=== PATIENT | female | born 1930 | race Caucasian/White ===

== ENCOUNTER 2016-08-25 20:49 | Emergency (ER) | payer OTHER ==
[2016-08-25 21:43] VITALS: BP 137/89
== END 2016-08-25 21:43 | disposition home or self-care (01) ==
LOC: ED 20:49
DX: S81.812A Laceration without foreign body, left lower leg, initial encounter (principal); W20.8XXA Other cause of strike by thrown, projected or falling object, initial encounter; Y93.89 Activity, other specified; Y92.89 Other specified places as the place of occurrence of the external cause; Y99.8 Other external cause status; Z88.0 Allergy status to penicillin; Z88.2 Allergy status to sulfonamides; Z88.1 Allergy status to other antibiotic agents
CPT/HCPCS: 90715; Q0092

== ENCOUNTER 2017-03-06 23:09 | Emergency (ER) | payer OTHER ==
[~2017-03-06] VITALS: Ht 165.1 cm; Wt 75.7 kg
[2017-03-06 23:15] VITALS: Ht 165.1 cm; Wt 75.7 kg
[2017-03-07 02:55] VITALS: BP 123/67
== END 2017-03-07 02:55 | disposition home or self-care (01) ==
LOC: ED 23:09
DX: S29.011A Strain of muscle and tendon of front wall of thorax, initial encounter (principal); M19.012 Primary osteoarthritis, left shoulder; M75.32 Calcific tendinitis of left shoulder; I10 Essential (primary) hypertension; E78.00 Pure hypercholesterolemia, unspecified; E03.9 Hypothyroidism, unspecified; Z88.0 Allergy status to penicillin; Z88.1 Allergy status to other antibiotic agents; Z88.2 Allergy status to sulfonamides; X58.XXXA Exposure to other specified factors, initial encounter; Y93.89 Activity, other specified; Y92.89 Other specified places as the place of occurrence of the external cause; Y99.8 Other external cause status
CPT/HCPCS: J1100; J1885

== ENCOUNTER 2017-06-03 04:14 | Inpatient (IN) | payer OTHER ==
[~2017-06-03] VITALS: Ht 160 cm; Wt 73.5 kg
[2017-06-03 04:58] LABS: BASOPHIL % 0.3 % (0-2); PLATELET COUNT 243 x10^3mcL (130-400); RED CELL DISTRIBUTION WIDTH 13.6 % (11.5-14.5)
[2017-06-03 05:07] LABS: CALCIUM 9.6 mg/dL (8.5-10.1); CARBON DIOXIDE 31.2 mmol/L (21-32); CHLORIDE SERUM 97 mmol/L (98-107); CREATININE SERUM 0.8 mg/dL (0.6-1.0); GLUCOSE SERUM 115 mg/dL (74-106); POTASSIUM SERUM 3.7 mmol/L (3.5-5.1); SODIUM SERUM 134 mmol/L (136-145)
[2017-06-03 05:12] LABS: ALBUMIN 3.9 g/dL (3.4-5.0); ALKALINE PHOSPHATASE 65 U/L (46-116); ALT/SGPT 15 U/L (14-59); AST/SGOT 29 U/L (15-37); TOTAL PROTEIN, SERUM 7.5 g/dL (6.4-8.2)
[2017-06-03] MEDS ORDERED: BENAZEPRIL HYDR20 M1 PO (06:03)
[2017-06-03] MEDS ORDERED: PRAVACHOL20 MG PO (06:04)
[2017-06-03] MEDS ORDERED: LEVOTHYROXIN0.075 M2 PO (06:04)
[2017-06-03 06:45] VITALS: BP 155/69
[2017-06-03 07:00] LABS: T3 TOTAL 0.92 ng/mL
[2017-06-03 08:29] VITALS: BP 155/69
[2017-06-03 09:05] LABS: MAGNESIUM 1.7 mg/dL (1.8-2.4); PHOSPHOROUS 4.1 mg/dL (2.5-4.9)
[2017-06-03 09:06] LABS: CHOLESTEROL/HDL RATIO 2.5
[2017-06-03 09:11] LABS: FREE T4 1.19 ng/dL (0.76-1.46); FREE THYROXINE INDEX 3.1 ug/dL (1.4-4.5); T4(THYROXINE) 9.5 ug/dL (4.7-13.3)
[2017-06-03 09:30] VITALS: BP 129/56
[2017-06-03 10:17] LABS: UA SPECIFIC GRAVITY 1.025 (1.005-1.035); microscopic required? YES; urine erythrocyte NEGATIVE (NEGATIVE)
[2017-06-03 11:02] LABS: AMPHETAMINE QUAL UR NONE DETECTED (NEG <=1000)
[2017-06-03 12:30] VITALS: BP 149/62
[2017-06-03 16:40] VITALS: BP 139/61
[2017-06-03 22:02] VITALS: BP 128/60
[2017-06-04 05:44] VITALS: BP 155/66
[2017-06-04 06:33] LABS: BASOPHIL % 0.3 % (0-2); PLATELET COUNT 222 x10^3mcL (130-400); RED CELL DISTRIBUTION WIDTH 13.6 % (11.5-14.5)
[2017-06-04 06:43] LABS: CALCIUM 8.6 mg/dL (8.5-10.1); CARBON DIOXIDE 31.8 mmol/L (21-32); CHLORIDE SERUM 102 mmol/L (98-107); CREATININE SERUM 0.6 mg/dL (0.6-1.0); GLUCOSE SERUM 92 mg/dL (74-106); MAGNESIUM 1.9 mg/dL (1.8-2.4); POTASSIUM SERUM 4.3 mmol/L (3.5-5.1); SODIUM SERUM 138 mmol/L (136-145)
[2017-06-04 08:41] VITALS: BP 132/69
[2017-06-04 10:08] VITALS: Ht 160 cm; Wt 73.5 kg
[2017-06-04 13:30] VITALS: BP 144/66
[2017-06-04 17:10] VITALS: BP 120/56
[2017-06-04 21:17] VITALS: BP 150/73
[2017-06-05 05:27] VITALS: BP 138/59
[2017-06-05 06:57] LABS: BASOPHIL % 0.3 % (0-2); PLATELET COUNT 220 x10^3mcL (130-400); RED CELL DISTRIBUTION WIDTH 13.7 % (11.5-14.5)
[2017-06-05 07:09] LABS: CALCIUM 8.6 mg/dL (8.5-10.1); CARBON DIOXIDE 32.1 mmol/L (21-32); CHLORIDE SERUM 105 mmol/L (98-107); CREATININE SERUM 0.6 mg/dL (0.6-1.0); GLUCOSE SERUM 77 mg/dL (74-106); POTASSIUM SERUM 4.3 mmol/L (3.5-5.1); SODIUM SERUM 140 mmol/L (136-145)
[2017-06-05 08:21] VITALS: BP 136/66
[2017-06-05 17:18] VITALS: BP 113/53
[2017-06-05 20:55] VITALS: BP 134/59
[2017-06-06 05:58] VITALS: BP 158/78
[2017-06-06 06:50] LABS: BASOPHIL % 0.4 % (0-2); PLATELET COUNT 206 x10^3mcL (130-400); RED CELL DISTRIBUTION WIDTH 13.6 % (11.5-14.5)
[2017-06-06 07:07] LABS: CALCIUM 8.9 mg/dL (8.5-10.1); CARBON DIOXIDE 30.5 mmol/L (21-32); CHLORIDE SERUM 105 mmol/L (98-107); CREATININE SERUM 0.6 mg/dL (0.6-1.0); GLUCOSE SERUM 83 mg/dL (74-106); POTASSIUM SERUM 4.6 mmol/L (3.5-5.1); SODIUM SERUM 141 mmol/L (136-145)
[2017-06-06 09:30] VITALS: BP 134/65
[2017-06-06 12:52] VITALS: BP 166/70
[2017-06-06 13:58] VITALS: BP 133/69
[2017-06-06] MEDS ORDERED: MOT800 PO (14:24)
[2017-06-06] MEDS ORDERED: NORCO1 TA2 PO (14:27)
== END 2017-06-06 15:50 | disposition home or self-care (01) | DRG 184 ==
LOC: ED 04:14 → MU 05:35 → DU 05:35 → MU 06-04 09:11
PROVIDERS: Emergency Medicine; Family Medicine
DX: S22.41XA Multiple fractures of ribs, right side, initial encounter for closed fracture (principal); N39.0 Urinary tract infection, site not specified; E87.1 Hypo-osmolality and hyponatremia; E83.42 Hypomagnesemia; S80.11XA Contusion of right lower leg, initial encounter; M81.0 Age-related osteoporosis without current pathological fracture; I10 Essential (primary) hypertension; I73.9 Peripheral vascular disease, unspecified; E03.9 Hypothyroidism, unspecified; E78.5 Hyperlipidemia, unspecified; W01.0XXA Fall on same level from slipping, tripping and stumbling without subsequent striking against object, initial encounter; Y92.009 Unspecified place in unspecified non-institutional (private) residence as the place of occurrence of the external cause
CPT/HCPCS: 82962; 83880; 84439; 94150; 97110-GP; 97116-GP; 97530-GP; J1885; J2270; J3475; J7030

== ENCOUNTER 2018-07-15 13:30 | Inpatient (IN) | payer OTHER ==
[~2018-07-15] VITALS: Ht 152.4 cm; Wt 73.5 kg
[~2018-07-15 13:30] MED LIST: BENAZEPRIL HYDR20 M1 PO; LEVOTHYROXIN0.075 M2 PO; MOT800 PO; NORCO1 TA2 PO; PRAVACHOL20 MG PO
[2018-07-15 13:36] VITALS: Ht 152.4 cm; Wt 73.5 kg
[2018-07-15 15:14] LABS: BASOPHIL % 0.4 % (0-2); PLATELET COUNT 195 x10^3mcL (130-400); RED CELL DISTRIBUTION WIDTH 14.4 % (11.5-14.5)
[2018-07-15 15:26] LABS: CALCIUM 9.7 mg/dL (8.5-10.1); CARBON DIOXIDE 24.7 mmol/L (21-32); CHLORIDE SERUM 100 mmol/L (98-107); CREATININE SERUM 0.9 mg/dL (0.6-1.0); GLUCOSE SERUM 191 mg/dL (74-106); POTASSIUM SERUM 3.5 mmol/L (3.5-5.1); SODIUM SERUM 137 mmol/L (136-145)
[2018-07-15 15:30] LABS: ALBUMIN 3.8 g/dL (3.4-5.0); ALKALINE PHOSPHATASE 61 U/L (46-116); ALT/SGPT 20 U/L (14-59); AST/SGOT 23 U/L (15-37); BILIRUBIN TOTAL 0.57 mg/dL (0.20-1.00); CHOLESTEROL 143 mg/dL (<200); TOTAL PROTEIN, SERUM 7.4 g/dL (6.4-8.2)
[2018-07-15 15:35] LABS: UA SPECIFIC GRAVITY 1.025 (1.005-1.035); microscopic required? YES; urine erythrocyte TRACE (NEGATIVE)
[2018-07-15] MEDS ORDERED: BENAZEPRIL HCL-1 TA3 PO (16:30)
[2018-07-15] MEDS ORDERED: SYN15 (16:33)
[2018-07-15] MEDS ORDERED: PRAVASTATIN SOD10 M1 (16:38)
[2018-07-15] MEDS ORDERED: ADULT ASPIRIN81 MG PO (16:39)
[2018-07-15 20:43] VITALS: BP 144/72
[2018-07-16 05:51] VITALS: BP 110/50
[2018-07-16 06:11] LABS: BASOPHIL % 0.3 % (0-2); PLATELET COUNT 197 x10^3mcL (130-400); RED CELL DISTRIBUTION WIDTH 14.2 % (11.5-14.5)
[2018-07-16 06:22] VITALS: BP 110/50
[2018-07-16 07:06] LABS: CALCIUM 8.8 mg/dL (8.5-10.1); CARBON DIOXIDE 30.2 mmol/L (21-32); CHLORIDE SERUM 101 mmol/L (98-107); CREATININE SERUM 0.7 mg/dL (0.6-1.0); GLUCOSE SERUM 94 mg/dL (74-106); POTASSIUM SERUM 3.2 mmol/L (3.5-5.1); SODIUM SERUM 137 mmol/L (136-145); T4(THYROXINE) 6.9 ug/dL (4.7-13.3)
[2018-07-16 09:01] VITALS: BP 109/51
[2018-07-16 12:39] VITALS: BP 104/47
[2018-07-16 14:27] LABS: ERYTHROCYTE SED RATE 11 mm/hr (0-30)
[2018-07-16 21:10] VITALS: BP 115/54
[2018-07-17 05:16] LABS: RAPID PLASMA REAGIN Non Reactive (Non Reactive)
[2018-07-17 05:22] VITALS: BP 125/55
[2018-07-17 06:42] LABS: BASOPHIL % 0.2 % (0-2); PLATELET COUNT 192 x10^3mcL (130-400); RED CELL DISTRIBUTION WIDTH 14.3 % (11.5-14.5)
[2018-07-17 09:05] VITALS: BP 116/54
[2018-07-17 09:08] LABS: RHEUMATOID ARTHRITIS FACTOR <10.0 IU/mL (0.0-13.9)
[2018-07-17 12:15] VITALS: BP 118/60
== END 2018-07-17 16:33 | disposition home or self-care (01) | DRG 947 ==
LOC: ED 13:30 → DU 18:04
PROVIDERS: Emergency Medicine; ADMIT Internal Medicine
DX: R41.82 Altered mental status, unspecified (principal); G93.41 Metabolic encephalopathy; I10 Essential (primary) hypertension; E03.9 Hypothyroidism, unspecified; E78.5 Hyperlipidemia, unspecified; M19.90 Unspecified osteoarthritis, unspecified site; Z79.82 Long term (current) use of aspirin; Z68.26 Body mass index [BMI] 26.0-26.9, adult
CPT/HCPCS: 82962; 86431; G0480; J1630; J2060; J3490; Q0092; Q9967